=== PATIENT | female | born 1960 | race Caucasian/White ===

== ENCOUNTER → 2017-04-02 | Outpatient (CLI) | payer BC, OTHER | END | disposition home or self-care (01) | LOC: GMAJ 10:18 | PROVIDERS: ATTEND Family Medicine | DX: R55 Syncope and collapse (principal) ==

== ENCOUNTER → 2017-04-05 | Outpatient (CLI) | payer BC, OTHER | END | disposition home or self-care (01) | LOC: GMA 15:37 | PROVIDERS: ATTEND Nurse Practitioner Family | DX: N30.00 Acute cystitis without hematuria (principal) ==

== ENCOUNTER → 2017-07-08 | Outpatient (CLI) | payer BC, OTHER | END | disposition home or self-care (01) | LOC: GMAJ 16:37 | PROVIDERS: ATTEND Family Medicine | DX: N30.00 Acute cystitis without hematuria (principal) ==

== ENCOUNTER → 2017-07-08 | Outpatient (CLI) | payer BC, OTHER ==
--- NOTE | 2017-07-09 14:26 | CT ---
EXAM DESCRIPTION: Head CLINICAL HISTORY: 57 years, Female, [place], POOR BALANCE COMPARISON: None. FINDINGS: Unenhanced images through the brain. This examination was performed according to our departmental dose optimization program, which includes automatic exposure control, adjustment of the MA and/or kV according to the patient size and/or use of iterative reconstruction technique. Lowers portion of the frontal lobes are not included on this study There is no intracranial hemorrhage or mass. Mild frontal atrophy. No significant paranasal sinus disease visualized portion. IMPRESSION: Mild frontal atrophy without intracranial hemorrhage or mass Electronically signed by: Scottie Moncada MD 07/09/2017 2:25 PM CDT
== END ==
LOC: CT 14:03
PROVIDERS: ATTEND Internal Medicine Rheumatology
DX: R29.6 Repeated falls (principal)

== ENCOUNTER → 2017-09-18 | Outpatient (CLI) | payer BC, OTHER ==
--- NOTE | 2017-09-22 10:54 | NM ---
EXAM DESCRIPTION: Bone Scan, Whole Body CLINICAL HISTORY: 49-year-old, female, back pain. COMPARISON: CT abdomen pelvis dated June 27, 2016 TECHNIQUE: Following intravenous administration of 28 mCi technetium 99 M MDP, whole body and spot scintigraphic imaging was performed. FINDINGS: Skull: Unremarkable. Spine: Homogeneous radiotracer activity seen throughout the cervical, thoracic, and lumbar spine without abnormal foci of increased uptake. Thorax: Homogeneous radiotracer activity demonstrated within the ribs bilaterally. Abdomen/pelvis: Urinary activity demonstrated within the bilateral kidneys and urinary bladder. Small volume urinary activity seen within the right renal collecting system. Extremities: No osteoblastic lesions. Soft tissue: Normal distribution of radiopharmaceutical. IMPRESSION: 1. Homogeneous radiotracer activity seen throughout the cervical, thoracic, and lumbar spine without abnormal foci of increased uptake. No scintigraphic evidence for osteoblastic metastatic lesions. Electronically signed by: Sunny Correa MD 09/22/2017 10:53 AM CDT
== END | disposition home or self-care (01) ==
LOC: NM 09:28
PROVIDERS: ATTEND Family Medicine
DX: M54.16 Radiculopathy, lumbar region (principal)

== ENCOUNTER → 2017-11-14 | Outpatient (CLI) | payer BC, OTHER | LOC: GMA 19:06 | PROVIDERS: ATTEND Nurse Practitioner Family | DX: N30.00 Acute cystitis without hematuria (principal) ==

== ENCOUNTER → 2018-03-04 | Outpatient (CLI) | payer BC, OTHER ==
--- NOTE | 2018-03-05 12:12 | MRI ---
EXAM DESCRIPTION: Brain w/wo Contrast: Magnetic Resonance Imaging. CLINICAL HISTORY: MIGRAINE WITH AURA, NOT INTRACTABLE COMPARISON: MRI scan cervical spine on the same visit. TECHNIQUE: Multiplanar, high-field MRI, multiple conventional sequences, without and with gadolinium IV contrast. No adverse reactions. Multiple axial diffusion sequences. FINDINGS: Focal bright and dates FLAIR and T2-weighted signal in the periventricular white matter abutting the frontal horns of the lateral ventricles and also in the subcortical right frontal white matter. Small follicle bilateral hyperintensities symmetrical in the bilateral occipital lobes . Normal signal in the bilateral basal ganglia. No hemorrhage, no cerebral edema, no mass-effect. Normal contrast enhancement. Normal signal in the brainstem and cerebellar hemispheres. No hemorrhage, no cerebral edema, no mass-effect. Normal contrast enhancement. Concordance of the diffusion and non-diffusion sequences with no evidence of acute or subacute infarction. Cortical sulci, ventricles, and other CSF spaces, and the subdural spaces are normally configured for patients age. No effacement or displacement. No midline shift. No extra-axial hemorrhage. Normal contrast enhancement. Normal flow signal void in the major vessels of the [place], and the venous sinuses. IACs are symmetric bilaterally. Normal signal in the bilateral mastoid air cells. No mass effect in the bilateral Cerebellopontine angles. Normal contrast enhancement. Pituitary gland occupies most of the sella. Normal contrast enhancement. Base of the cerebellar tonsils is above the foramen magnum. Mucoperiosteal thickening in the left ethmoid air cells of the paranasal sinuses. Minimal involvement of the frontal and sphenoid air cells. The bony calvarium is intact. IMPRESSION: 1. Focal periventricular white matter hyperintensity abutting the frontal horns of the lateral ventricles and in the parasagittal occipital subcortical white matter and right frontal subcortical white matter. This could be related to migraine headaches. Other etiologies would include early cerebral microvascular disease, demyelinating process, vasculitis, or inflammatory process. No hemorrhage, mass effect, cerebral edema shift or herniation. 2. Normal noncontrast MRI diffusion study with no evidence of acute or subacute infarction. 3. Chronic paranasal sinusitis primarily involving the left ethmoid air cells. Electronically signed by: Damon Bertrand MD 03/05/2018 12:11 PM CDT
--- NOTE | 2018-03-05 12:49 | MRI ---
EXAM DESCRIPTION: Cervical Spine: MRI. CLINICAL HISTORY: CERVICALGIA COMPARISON: MRI scan of the brain without and with gadolinium IV contrast. TECHNIQUE: Multiplanar MRI, multiple sequences, non-contrast High-field. FINDINGS: Normal signal in the cervical disks with no bulging. Disc spaces preserved. Canal and neural foramina are patent. Facets on the right at C7-T1 and T1-T2 show minimal arthrosis. Other facets are negative. No cord compression or cord edema. Spine is minimally kyphotic C2-C4. Atlantoaxial joint is unremarkable. Base of the cerebellar tonsils is above the foramen magnum. Paravertebral soft tissues negative.. No scoliosis. Vertebral bodies are not compressed at any level. Normal marrow signal in the vertebral bodies and the posterior elements. IMPRESSION: 1. Minimal facet arthrosis on the right at T1-T2 and C7-T1. Other facets are unremarkable. 2. Minimal kyphosis upper cervical spine could be due to muscle spasm. 3. Normal discs and disc spaces at every level. Canal and foramina are patent. No paravertebral abnormalities. Electronically signed by: Damon Bertrand MD 03/05/2018 12:47 PM CDT
== END | disposition home or self-care (01) ==
LOC: MRI 14:41
PROVIDERS: ATTEND Family Medicine
DX: M54.2 Cervicalgia (principal); G43.109 Migraine with aura, not intractable, without status migrainosus; Z79.899 Other long term (current) drug therapy

== ENCOUNTER → 2018-03-10 | Outpatient (CLI) | payer BC, OTHER | END | disposition home or self-care (01) | LOC: GMAJ 17:37 | PROVIDERS: ATTEND Family Medicine | DX: M32.10 Systemic lupus erythematosus, organ or system involvement unspecified (principal) ==

== ENCOUNTER → 2018-03-30 | Outpatient (CLI) | payer BC, OTHER | LOC: GMAJS 21:09 | PROVIDERS: ATTEND Physician Assistant | DX: N30.00 Acute cystitis without hematuria (principal) ==

== ENCOUNTER → 2018-08-14 | Outpatient (CLI) | payer MEDICARE, BC, OTHER | LOC: GMAJ 11:59 | PROVIDERS: ATTEND Family Medicine | DX: D64.9 Anemia, unspecified (principal); E53.8 Deficiency of other specified B group vitamins ==

== ENCOUNTER → 2018-08-24 | Outpatient (CLI) | payer MEDICARE, BC, OTHER | LOC: GMAJS 16:41 | PROVIDERS: ATTEND Physician Assistant | DX: R39.15 Urgency of urination (principal) ==

== ENCOUNTER → 2018-12-16 | Outpatient (CLI) | payer MEDICARE, OTHER | LOC: GMAJ 16:53 | PROVIDERS: ATTEND Family Medicine | DX: D64.9 Anemia, unspecified (principal) ==

== ENCOUNTER → 2019-01-08 | Outpatient (CLI) | payer MEDICARE, OTHER ==
--- NOTE | 2019-01-12 09:09 | MRI ---
Study: MRI of the Right Wrist. Indication: PAIN IN RIGHT WRIST Technique: Multiplanar, multi sequence MRI of the right wrist was obtained without intravenous contrast. Comparison: None. Findings: A subacute appearing transverse scaphoid waist fracture noted with surrounding marrow edema, most pronounced in the proximal pole. The fracture appears ununited. No appreciable osteonecrosis or collapse of the proximal pole identified at this time. Mild humpback deformity of the dorsal margin of the fracture plane noted. No significant tilt of the lunate. The scapholunate ligament is attenuated with suspected partial thickness tearing centrally but without complete transection or widening of the interval. Lunotriquetral ligament intact. TFC is attenuated with degenerative signal. 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 Ulnar variance is neutral. Small radiocarpal and midcarpal joint effusions. Extensor tendons, flexor tendons, flexor retinaculum, median nerve, and ulnar nerve are unremarkable. Impression: Subacute appearing transverse fracture of the scaphoid waist with marrow edema about fracture. No definitive osteonecrosis identified at this time. The fracture is likely ununited. Minimal humpback deformity noted. Partial tearing and attenuation central substance scapholunate ligament. Degenerative signal and attenuation TFC. 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 Electronically signed by: Uriel Cummings MD 01/12/2019 9:07 AM PREDICTIVE MAINTENANCE TECHNICIAN
== END ==
LOC: MRI 08:22
PROVIDERS: ATTEND Family Medicine
DX: S62.001A Unspecified fracture of navicular [scaphoid] bone of right wrist, initial encounter for closed fracture (principal); S63.511A Sprain of carpal joint of right wrist, initial encounter

== ENCOUNTER → 2019-01-13 | Outpatient (CLI) | payer MEDICARE, OTHER | LOC: GMAJ 16:43 | PROVIDERS: ATTEND Family Medicine | DX: R53.83 Other fatigue (principal); E53.8 Deficiency of other specified B group vitamins; E56.9 Vitamin deficiency, unspecified ==

== ENCOUNTER → 2019-10-20 | Outpatient (CLI) | payer MEDICARE, OTHER ==
--- NOTE | 2019-10-21 09:25 | MRI ---
EXAM DESCRIPTION: Lumbar Spine w/o Contrast : Magnetic Resonance Imaging. CLINICAL HISTORY: RADICULOPATHY COMPARISON: MRI scan lumbar spine without contrast 11/09/2012. TECHNIQUE: Multiplanar, multiple standard sequences, non contrast MRI, lumbar spine. FINDINGS: L5-S1: The disc is well visualized on axial T2 series 501, image 3. Disc desiccated with posterior midline 3 mm bulge. Minimal thickening of the flavum ligaments. Mild narrowing of the left foramen and moderate narrowing of the right foramen. Stable since the prior study. L4-L5: Normal signal in the disc and disc space preserved. Posterior ligaments are thickened. Arthrosis in the left facet. Moderate to severe bilateral foraminal narrowing. No change from the prior study. L3-L4: Normal signal in the disc with disc space preserved. Minimal thickening of the posterior ligaments. Facets are unremarkable. Canal and bilateral foramina are patent. Stable since the prior study. L2-L3: Minimal disc desiccation with tiny posterior bulge. Disc space maintained. Minimal hypertrophy of the bilateral ligaments. No canal narrowing. Facet joints are unremarkable. Bilateral foramina are patent. No change from the prior study. L1-L2: Normal signal in the disc and disc space maintained. Posterior elements unremarkable. Canal and foramina are patent. Conus terminates at L1-L2. Stable since the prior study. T12-L1: Normal signal in the disc and disc space maintained. Posterior elements unremarkable. Canal and foramina are patent. No change from the prior study. No significant alignment abnormalities. Paravertebral soft tissues with minimal muscular atrophy.. Distal cord normal signal and caliber. Otherwise normal marrow signal in the remaining vertebral bodies and the posterior elements. Vertebral bodies are not compressed at any level. IMPRESSION: 1. Posterior flavum ligament hypertrophy at most levels. Minimal facet arthrosis. Minimal disc disease. 2. Posterior midline disc bulge at L5-S1 with moderate narrowing right foramen. Stable since the prior study. 3. L4-L5 disc is unremarkable but posterior ligaments are thickened. Bilateral moderate to severe foraminal narrowing. No change from the prior study. Electronically signed by: Damon Bertrand MD 10/21/2019 9:23 AM LAPELER
== END | disposition home or self-care (01) ==
LOC: MRI 10:22
PROVIDERS: ATTEND Family Medicine
DX: M54.17 Radiculopathy, lumbosacral region (principal)